=== PATIENT | female | born 1960 | race Caucasian/White ===

== ENCOUNTER → 2017-12-02 | Outpatient (CLI) | payer MEDICAID ==
[2017-12-02 14:48] LABS: ABSOLUTE BASOPHILS # (AUTO) 0.1 10^3/uL (0.0-0.2); ABSOLUTE LYMPHOCYTES (AUTO) 2.6 10^3/uL (0.5-4.7); ABSOLUTE MONOCYTES (AUTO) 0.6 10^3/uL (0.1-1.4); ABSOLUTE NEUT (AUTO) 6.3 10^3/uL (1.7-8.2); HEMATOCRIT 45.5 % (36.0-47.0); HEMOGLOBIN 15.2 g/dL (12.0-15.5); LYMPHOCYTES % (AUTO) 27.3 % (13-45); MEAN CORPUSCULAR HEMOGLOBIN 32.4 pg (27.0-33.4); MEAN CORPUSCULAR HGB CONC 33.5 g/dL (32.0-36.0); MEAN CORPUSCULAR VOLUME 97 fl (80-97); MONOCYTES % (AUTO) 6.1 % (3-13); PLATELET COUNT 252 10^3/uL (150-450); RED CELL DISTRIBUTION WIDTH 17.2 % (11.5-14.0); SEGMENTED NEUTROPHILS % (AUTO) 65.6 % (42-78); TOTAL CELLS COUNTED % (AUTO) 100 %; WHITE BLOOD COUNT 9.7 10^3/uL (4.0-10.5)
== END ==
LOC: OD 13:57
PROVIDERS: ATTEND Emergency Medicine
DX: F31.32 Bipolar disorder, current episode depressed, moderate (principal)
CPT/HCPCS: 36415; 85025

== ENCOUNTER → 2018-01-06 | Outpatient (CLI) | payer MEDICAID ==
[2018-01-06 14:39] LABS: ABSOLUTE LYMPHOCYTES (AUTO) 1.9 10^3/uL (0.5-4.7); ABSOLUTE MONOCYTES (AUTO) 0.6 10^3/uL (0.1-1.4); ABSOLUTE NEUT (AUTO) 6.9 10^3/uL (1.7-8.2); BASOPHILS % (AUTO) 0.5 % (0-2); HEMATOCRIT 40.5 % (36.0-47.0); HEMOGLOBIN 13.7 g/dL (12.0-15.5); LYMPHOCYTES % (AUTO) 20.3 % (13-45); MEAN CORPUSCULAR HGB CONC 33.9 g/dL (32.0-36.0); MEAN CORPUSCULAR VOLUME 97 fl (80-97); MONOCYTES % (AUTO) 6.3 % (3-13); PLATELET COUNT 203 10^3/uL (150-450); RED BLOOD COUNT 4.16 10^6/uL (3.72-5.28); SEGMENTED NEUTROPHILS % (AUTO) 72.9 % (42-78); TOTAL CELLS COUNTED % (AUTO) 100 %; WHITE BLOOD COUNT 9.5 10^3/uL (4.0-10.5)
== END ==
LOC: OD 13:32
PROVIDERS: ATTEND Emergency Medicine
DX: F31.32 Bipolar disorder, current episode depressed, moderate (principal)
CPT/HCPCS: 36415; 85025

== ENCOUNTER → 2018-02-03 | Outpatient (CLI) | payer MEDICAID ==
--- NOTE | 2018-02-17 11:06 | WOMENS IMAGING REPORT ---
EXAM DESCRIPTION: BILAT SCREENING MAMMO W/CAD COMPLETED DATE/TIME: 02/03/2018 1:05 pm REASON FOR STUDY: BILATERAL SCREENING MAMMO/Z12.31 Z12.31 ENCNTR SCREEN MAMMOGRAM FOR MALIGNANT ELAYNE PLASM OF MANASA COMPARISON: None. TECHNIQUE: Standard craniocaudal and mediolateral oblique views of each breast recorded using twenty5mediaa l acquisition. LIMITATIONS: None. FINDINGS: RIGHT BREAST MASSES: No suspicious masses. CALCIFICATIONS: No new or suspicious calcifications. ARCHITECTURAL DISTORTION: None. DEVELOPING DENSITY: None. ASYMMETRY: None noted. OTHER: No other significant findings. LEFT BREAST MASSES: No suspicious masses. CALCIFICATIONS: Focal cluster of calcifications in the deep superior breast, seen on the MLO view onl y, located 10.5 cm from the nipple. ARCHITECTURAL DISTORTION: None. DEVELOPING DENSITY: None. ASYMMETRY: None noted. OTHER: No other significant findings. Read with the assistance of CAD. .[facility] - R2 Cenova Version 1.3 .[facility] Imaging - R2 Cenova Version 1.3 .[facility] Imaging - R2 Cenova Version 2.4 .[facility] - R2 Cenova Version 2.4 .[facility] - R2 Master Certified Rv Technician Version 9.2 IMPRESSION: Focal cluster of calcifications in the deep left breast, seen on the MLO view only. Unr emarkable mammogram of the right breast. BREAST DENSITY: b. There are scattered areas of fibroglandular density. BIRAD: 0 Incomplete: Needs Additional Imaging Evaluation and/or prior Mammograms for Comparison. RECOMMENDATION: RECOMMENDED FOLLOW-UP: Recommend additional evaluation with magnification views of t he left breast. Recommend routine screening mammography of the right breast. The patient will be contacted for additional imaging. COMMENT: The patient has been notified of the results by letter per SA requirements. Additional no tification policies are in place for contacting patient with suspicious or incomplete findings. Quality ID #[id number]: The [employer] recommends an annual screening mammogram for women aged 40 years or over. This facility utilizes a reminder system to ensure that all patients receive reminder letters, and/or direct phone calls for appointments. This includes reminders for routine scr eening mammograms, diagnostic mammograms, or other Breast Imaging Interventions when appropriate. Th is patient will be placed in the appropriate reminder system. The [employer] (ACR) has developed recommendations for screening MRI of the breast s in certain patient populations, to be used in conjunction with mammography. Breast MRI surveillanc e may be appropriate for women with more than 20% lifetime risk of developing breast cancer as deter mined by genetic testing, significant family history of the disease, or history of mantle radiation f or Hodgkins Disease. ACR Practice Guidelines 2008. TECHNICAL DOCUMENTATION: FINDING NUMBER: (1) ASSESSMENT: (1) JOB ID: [id number] [employer]- All Rights Reserved Reading location - IP/workstation name: [email or web address]
== END ==
LOC: WI 12:45
PROVIDERS: ATTEND Physician Assistant Medical
DX: Z12.31 Encounter for screening mammogram for malignant neoplasm of breast (principal)
CPT/HCPCS: 77067

== ENCOUNTER → 2018-02-10 | Outpatient (CLI) | payer MEDICAID ==
[2018-02-10 14:36] LABS: HEMATOCRIT 44.7 % (36.0-47.0); HEMOGLOBIN 14.8 g/dL (12.0-15.5); MEAN CORPUSCULAR HEMOGLOBIN 31.8 pg (27.0-33.4); MEAN CORPUSCULAR HGB CONC 33.1 g/dL (32.0-36.0); MEAN CORPUSCULAR VOLUME 96 fl (80-97); PLATELET COUNT 207 10^3/uL (150-450); RED BLOOD COUNT 4.64 10^6/uL (3.72-5.28); RED CELL DISTRIBUTION WIDTH 16.9 % (11.5-14.0); WHITE BLOOD COUNT 14.8 10^3/uL (4.0-10.5)
[2018-02-10 15:18] LABS: ABSOLUTE LYMPHOCYTES# (MANUAL) 3.4 10^3/uL (0.5-4.7); ABSOLUTE MONOCYTES # (MANUAL) 0.9 10^3/uL (0.1-1.4); ABSOLUTE NEUTROPHILS# (MANUAL) 10.2 10^3/uL (1.7-8.2); BAND NEUTROPHILS % (MANUAL) 6 % (3-5); BASOPHILS % (MANUAL) 2 % (0-2); EOSINOPHILS % (MANUAL) 0 % (0-6); LYMPHOCYTES % (MANUAL) 23 % (13-45); METAMYELOCYTES % (MANUAL) 2 % (0); MONOCYTES % (MANUAL) 6 % (3-13); SEGMENTED NEUTROPHILS % (MAN) 61 % (42-78); TOTAL CELLS COUNTED 100
[2018-02-10 15:19] LABS: ANISOCYTOSIS 1+; PLATELET CLUMPS PRESENT; POLYCHROMASIA SLIGHT; TOXIC GRANULATION 1+; TOXIC VACUOLATION PRESENT
[2018-02-10 15:24] LABS: ALANINE AMINOTRANSFERASE 32 U/L (9-52); ALBUMIN 4.2 g/dL (3.5-5.0); ALKALINE PHOSPHATASE 133 U/L (38-126); ANION GAP 15 (5-19); ASPARTATE AMINO TRANSFERASE 29 U/L (14-36); BILIRUBIN,DIRECT 0.5 mg/dL (0.0-0.4); BILIRUBIN,TOTAL 0.7 mg/dL (0.2-1.3); BLOOD UREA NITROGEN 13 mg/dL (7-20); C-REACTIVE PROTEIN 20.5 mg/L (<10.0); CALCIUM 9.3 mg/dL (8.4-10.2); CARBON DIOXIDE 23 mmol/L (22-30); CHLORIDE 105 mmol/L (98-107); CHOLESTEROL 201.53 mg/dL (0-200); GAMMA-GLUTAMYL TRANSFERASE 39 U/L (8-78); GLUCOSE 89 mg/dL (75-110); POTASSIUM 4.1 mmol/L (3.6-5.0); SODIUM 143.2 mmol/L (137-145); TRIGLYCERIDES 182 mg/dL (<150)
[2018-02-10 15:33] LABS: DIRECT LDL 105 mg/dL (<100)
[2018-02-10 15:43] LABS: IRON(TIBC) 99.7 ug/dL (37-170)
[2018-02-10 16:54] LABS: VLDL CHOLESTEROL 36.4 mg/dL (10-31)
[2018-02-10 18:15] LABS: FREE T3 4.45 pg/mL (2.77-5.27); FREE T4 (FREE THYROXINE) 0.97 ng/dL (0.78-2.19)
[2018-02-10 18:28] LABS: THYROID STIMULATING HORMONE 1.03 uIU/mL (0.47-4.68)
[2018-02-11 08:43] LABS: HEPATITIS C VIRUS AB <0.1 s/co ratio (0.0-0.9)
[2018-02-11 09:07] LABS: HEPATITS B SURFACE ANTIGEN Negative (Negative)
== END ==
LOC: OD 13:29
PROVIDERS: ATTEND Emergency Medicine
DX: F31.32 Bipolar disorder, current episode depressed, moderate (principal)
CPT/HCPCS: 36415; 80053; 80061; 82607; 82746; 82977; 83036; 83090; 83540; 83550; 84439; 84443; 84481; 85025; 86140; 86592; 86701; 86803; 86804; 87340

== ENCOUNTER → 2018-03-10 | Outpatient (CLI) | payer MEDICAID ==
[2018-03-10 14:32] LABS: HEMOGLOBIN 14.2 g/dL (12.0-15.5); MEAN CORPUSCULAR HEMOGLOBIN 31.9 pg (27.0-33.4); MEAN CORPUSCULAR HGB CONC 32.9 g/dL (32.0-36.0); MEAN CORPUSCULAR VOLUME 97 fl (80-97); PLATELET COUNT 211 10^3/uL (150-450); RED BLOOD COUNT 4.43 10^6/uL (3.72-5.28); RED CELL DISTRIBUTION WIDTH 17.8 % (11.5-14.0); WHITE BLOOD COUNT 9.6 10^3/uL (4.0-10.5)
[2018-03-10 14:56] LABS: ABSOLUTE LYMPHOCYTES# (MANUAL) 2.1 10^3/uL (0.5-4.7); ABSOLUTE MONOCYTES # (MANUAL) 0.3 10^3/uL (0.1-1.4); ABSOLUTE NEUTROPHILS# (MANUAL) 7.1 10^3/uL (1.7-8.2); ANISOCYTOSIS 2+; BAND NEUTROPHILS % (MANUAL) 1 % (3-5); BASOPHILS % (MANUAL) 0 % (0-2); EOSINOPHILS % (MANUAL) 1 % (0-6); LYMPHOCYTES % (MANUAL) 22 % (13-45); METAMYELOCYTES % (MANUAL) 2 % (0); MONOCYTES % (MANUAL) 3 % (3-13); PLATELET COMMENT ADEQUATE; POLYCHROMASIA 1+; SEGMENTED NEUTROPHILS % (MAN) 71 % (42-78); TOTAL CELLS COUNTED 100; TOXIC GRANULATION SLIGHT; TOXIC VACUOLATION PRESENT
== END ==
LOC: OD 13:28
PROVIDERS: ATTEND Emergency Medicine
DX: F31.32 Bipolar disorder, current episode depressed, moderate (principal)
CPT/HCPCS: 36415; 85025

== ENCOUNTER → 2018-03-11 | Outpatient (CLI) | payer MEDICAID ==
--- NOTE | 2018-03-11 13:26 | WOMENS IMAGING REPORT ---
EXAM DESCRIPTION: LEFT DIAGNOSTIC MAMMO W/CAD COMPLETED DATE/TIME: 03/11/2018 1:00 pm REASON FOR STUDY: LEFT BREAST CALCIFICATIONS; R92.0 R92.0 MAMMOGRAPHIC MICROCALCIFICATION FOUND ON DX IMAGING OF COMPARISON: 02/03/2018 TECHNIQUE: Compression magnification craniocaudal and 90 mediolateral images of the breast recorde d with digital acquisition. Left breast exaggerated craniocaudad, 90 mediolateral view and MLO view today. LIMITATIONS: None. FINDINGS: BREAST: Left MASSES: No suspicious masses. CALCIFICATIONS: Calcifications seen on left MLO view only 02/03/2018 are well demonstrated on today's exam. The magnification views demonstrate that this is a peripheral rim a or eggshell calcification, benign in appearance. In the field of view of biopsy clip is present without adjacent worrisome fea tures. ARCHITECTURAL DISTORTION: None. DEVELOPING DENSITY: None. ASYMMETRY: None noted. OTHER: No other significant findings. Read with the assistance of CAD. .[facility] - R2 Cenova Version 1.3 .[facility] Imaging - R2 Cenova Version 1.3 .[facility] Imaging - R2 Cenova Version 2.4 .[facility] - R2 Cenova Version 2.4 .[facility] - R2 Blasting Helper Version 9.2 IMPRESSION: No mammographic evidence for malignancy left breast BREAST DENSITY: b. There are scattered areas of fibroglandular density. BIRAD: 2 Benign findings. RECOMMENDATION: RECOMMENDED FOLLOW UP: Please continue yearly bilateral screening mammography/ tomos ynthesis in January 2019 SPECIFIC INTERVENTION/IMAGING/CONSULTATION RECOMMENDED:No additional intervention/ imaging/consultati on needed at this time. COMMUNICATION:Patient notified at the time of encounter. Patient also notified by letter COMMENT: The patient has been notified of the results by letter per SA requirements. Additional no tification policies are in place for contacting patient with suspicious or incomplete findings. Quality ID #[id number]: The [employer] recommends an annual screening mammogram for women aged 40 years or over. This facility utilizes a reminder system to ensure that all patients receive reminder letters, and/or direct phone calls for appointments. This includes reminders for routine scr eening mammograms, diagnostic mammograms, or other Breast Imaging Interventions when appropriate. Th is patient will be placed in the appropriate reminder system. The [employer] (ACR) has developed recommendations for screening MRI of the breast s in certain patient populations, to be used in conjunction with mammography. Breast MRI surveillanc e may be appropriate for women with more than 20% lifetime risk of developing breast cancer as deter mined by genetic testing, significant family history of the disease, or history of mantle radiation f or Hodgkins Disease. ACR Practice Guidelines 2008. TECHNICAL DOCUMENTATION: FINDING NUMBER: (1) ASSESSMENT: (1) JOB ID: [id number] [employer]- All Rights Reserved Reading location - IP/workstation name: [facility]
== END ==
LOC: WI 12:52
PROVIDERS: ATTEND Physician Assistant Medical
DX: R92.0 Mammographic microcalcification found on diagnostic imaging of breast (principal)

== ENCOUNTER → 2018-04-21 | Outpatient (CLI) | payer MEDICAID ==
[2018-04-21 13:36] LABS: ABSOLUTE BASOPHILS # (AUTO) 0.1 10^3/uL (0.0-0.2); ABSOLUTE LYMPHOCYTES (AUTO) 2.2 10^3/uL (0.5-4.7); ABSOLUTE MONOCYTES (AUTO) 0.6 10^3/uL (0.1-1.4); ABSOLUTE NEUT (AUTO) 8.7 10^3/uL (1.7-8.2); BASOPHILS % (AUTO) 0.6 % (0-2); HEMATOCRIT 43.5 % (36.0-47.0); HEMOGLOBIN 14.7 g/dL (12.0-15.5); LYMPHOCYTES % (AUTO) 18.9 % (13-45); MEAN CORPUSCULAR HEMOGLOBIN 31.4 pg (27.0-33.4); MEAN CORPUSCULAR HGB CONC 33.8 g/dL (32.0-36.0); MEAN CORPUSCULAR VOLUME 93 fl (80-97); MONOCYTES % (AUTO) 5.6 % (3-13); PLATELET COUNT 182 10^3/uL (150-450); RED BLOOD COUNT 4.68 10^6/uL (3.72-5.28); RED CELL DISTRIBUTION WIDTH 17.9 % (11.5-14.0); SEGMENTED NEUTROPHILS % (AUTO) 74.9 % (42-78); TOTAL CELLS COUNTED % (AUTO) 100 %; WHITE BLOOD COUNT 11.5 10^3/uL (4.0-10.5)
== END ==
LOC: OD 13:06
PROVIDERS: ATTEND Obstetrics & Gynecology Gynecology
DX: Z51.81 Encounter for therapeutic drug level monitoring (principal); Z79.899 Other long term (current) drug therapy
CPT/HCPCS: 36415; 85025

== ENCOUNTER → 2018-05-30 | Outpatient (CLI) | payer MEDICAID ==
[2018-05-30 13:25] LABS: HEMATOCRIT 44.8 % (36.0-47.0); MEAN CORPUSCULAR HEMOGLOBIN 30.8 pg (27.0-33.4); MEAN CORPUSCULAR HGB CONC 33.5 g/dL (32.0-36.0); MEAN CORPUSCULAR VOLUME 92 fl (80-97); PLATELET COUNT 192 10^3/uL (150-450); RED BLOOD COUNT 4.87 10^6/uL (3.72-5.28); RED CELL DISTRIBUTION WIDTH 18.2 % (11.5-14.0); WHITE BLOOD COUNT 12.8 10^3/uL (4.0-10.5)
[2018-05-30 14:27] LABS: ABSOLUTE LYMPHOCYTES# (MANUAL) 3.3 10^3/uL (0.5-4.7); ABSOLUTE MONOCYTES # (MANUAL) 0.5 10^3/uL (0.1-1.4); BAND NEUTROPHILS % (MANUAL) 2 % (3-5); BASOPHILS % (MANUAL) 0 % (0-2); EOSINOPHILS % (MANUAL) 0 % (0-6); LYMPHOCYTES % (MANUAL) 26 % (13-45); MONOCYTES % (MANUAL) 4 % (3-13); SEGMENTED NEUTROPHILS % (MAN) 68 % (42-78); TOTAL CELLS COUNTED 100
[2018-05-30 14:31] LABS: ANISOCYTOSIS 1+; OVALOCYTES SLIGHT; PLATELET COMMENT ADEQUATE; TOXIC GRANULATION SLIGHT
== END ==
LOC: OD 11:59
PROVIDERS: ATTEND Nurse Practitioner Psychiatric/Mental Health
DX: F31.30 Bipolar disorder, current episode depressed, mild or moderate severity, unspecified (principal); Z79.899 Other long term (current) drug therapy
CPT/HCPCS: 36415; 85025

== ENCOUNTER → 2018-06-17 | Outpatient (CLI) | payer MEDICAID ==
[2018-06-17 14:36] LABS: HEMATOCRIT 45.5 % (36.0-47.0); HEMOGLOBIN 15.3 g/dL (12.0-15.5); MEAN CORPUSCULAR HEMOGLOBIN 30.4 pg (27.0-33.4); MEAN CORPUSCULAR HGB CONC 33.6 g/dL (32.0-36.0); MEAN CORPUSCULAR VOLUME 91 fl (80-97); PLATELET COUNT 217 10^3/uL (150-450); RED BLOOD COUNT 5.03 10^6/uL (3.72-5.28); RED CELL DISTRIBUTION WIDTH 18.2 % (11.5-14.0)
[2018-06-17 15:09] LABS: ABSOLUTE LYMPHOCYTES# (MANUAL) 2.3 10^3/uL (0.5-4.7); ABSOLUTE MONOCYTES # (MANUAL) 0.7 10^3/uL (0.1-1.4); ABSOLUTE NEUTROPHILS# (MANUAL) 9.9 10^3/uL (1.7-8.2); ANISOCYTOSIS 2+; BAND NEUTROPHILS % (MANUAL) 3 % (3-5); BASOPHILS % (MANUAL) 1 % (0-2); EOSINOPHILS % (MANUAL) 0 % (0-6); HYPOCHROMASIA SLIGHT; LYMPHOCYTES % (MANUAL) 18 % (13-45); METAMYELOCYTES % (MANUAL) 2 % (0); MONOCYTES % (MANUAL) 5 % (3-13); PLATELET COMMENT ADEQUATE; POLYCHROMASIA SLIGHT; SEGMENTED NEUTROPHILS % (MAN) 71 % (42-78); TOTAL CELLS COUNTED 100; TOXIC GRANULATION SLIGHT
== END ==
LOC: OD 13:42
PROVIDERS: ATTEND Nurse Practitioner Psychiatric/Mental Health
DX: Z51.81 Encounter for therapeutic drug level monitoring (principal); Z79.899 Other long term (current) drug therapy
CPT/HCPCS: 36415; 85025

== ENCOUNTER → 2018-07-03 | Outpatient (CLI) | payer MEDICAID ==
[2018-07-03 12:41] LABS: HEMATOCRIT 40.2 % (36.0-47.0); HEMOGLOBIN 13.3 g/dL (12.0-15.5); MEAN CORPUSCULAR HEMOGLOBIN 30.1 pg (27.0-33.4); MEAN CORPUSCULAR VOLUME 91 fl (80-97); PLATELET COUNT 190 10^3/uL (150-450); RED BLOOD COUNT 4.41 10^6/uL (3.72-5.28); RED CELL DISTRIBUTION WIDTH 19.8 % (11.5-14.0); WHITE BLOOD COUNT 12.4 10^3/uL (4.0-10.5)
[2018-07-03 13:22] LABS: ABSOLUTE LYMPHOCYTES# (MANUAL) 2.4 10^3/uL (0.5-4.7); ABSOLUTE MONOCYTES # (MANUAL) 0.7 10^3/uL (0.1-1.4); ABSOLUTE NEUTROPHILS# (MANUAL) 9.2 10^3/uL (1.7-8.2); BASOPHILS % (MANUAL) 0 % (0-2); EOSINOPHILS % (MANUAL) 1 % (0-6); LYMPHOCYTES % (MANUAL) 19 % (13-45); MONOCYTES % (MANUAL) 6 % (3-13); SEGMENTED NEUTROPHILS % (MAN) 74 % (42-78); TOTAL CELLS COUNTED 100
[2018-07-03 13:26] LABS: ANISOCYTOSIS 2+; OVALOCYTES SLIGHT; POLYCHROMASIA SLIGHT; TEAR DROP CELLS SLIGHT; TOXIC GRANULATION 1+; TOXIC VACUOLATION PRESENT
[2018-07-03 13:27] LABS: PLATELET COMMENT ADEQUATE; PLATELET LARGE PRESENT
== END ==
LOC: OD 11:41
PROVIDERS: ATTEND Nurse Practitioner
DX: F31.32 Bipolar disorder, current episode depressed, moderate (principal)
CPT/HCPCS: 36415; 85025

== ENCOUNTER → 2018-07-31 | Outpatient (CLI) | payer MEDICAID ==
[2018-07-31 13:13] LABS: HEMATOCRIT 40.7 % (36.0-47.0); HEMOGLOBIN 13.4 g/dL (12.0-15.5); MEAN CORPUSCULAR HEMOGLOBIN 30.1 pg (27.0-33.4); MEAN CORPUSCULAR HGB CONC 32.8 g/dL (32.0-36.0); MEAN CORPUSCULAR VOLUME 92 fl (80-97); PLATELET COUNT 208 10^3/uL (150-450); RED BLOOD COUNT 4.44 10^6/uL (3.72-5.28); RED CELL DISTRIBUTION WIDTH 20.8 % (11.5-14.0); WHITE BLOOD COUNT 23.5 10^3/uL (4.0-10.5)
[2018-07-31 14:25] LABS: ABSOLUTE LYMPHOCYTES# (MANUAL) 2.8 10^3/uL (0.5-4.7); ABSOLUTE MONOCYTES # (MANUAL) 0.9 10^3/uL (0.1-1.4); ABSOLUTE NEUTROPHILS# (MANUAL) 19.7 10^3/uL (1.7-8.2); BAND NEUTROPHILS % (MANUAL) 4 % (3-5); BASOPHILS % (MANUAL) 0 % (0-2); EOSINOPHILS % (MANUAL) 0 % (0-6); LYMPHOCYTES % (MANUAL) 12 % (13-45); MONOCYTES % (MANUAL) 4 % (3-13); SEGMENTED NEUTROPHILS % (MAN) 74 % (42-78); TOTAL CELLS COUNTED 100
[2018-07-31 14:30] LABS: OVALOCYTES SLIGHT; PLATELET COMMENT ADEQUATE; POIKILOCYTOSIS SLIGHT; POLYCHROMASIA SLIGHT; TOXIC GRANULATION 1+
[2018-07-31 14:35] LABS: METAMYELOCYTES % (MANUAL) 4 % (0)
[2018-07-31 14:36] LABS: MYELOCYTES % (MANUAL) 2 % (0)
== END ==
LOC: OD 12:41
PROVIDERS: ATTEND Nurse Practitioner
DX: F31.32 Bipolar disorder, current episode depressed, moderate (principal)
CPT/HCPCS: 36415; 85025

== ENCOUNTER → 2018-08-22 | Outpatient (CLI) | payer MEDICAID ==
[2018-08-22 11:44] LABS: HEMATOCRIT 43.2 % (36.0-47.0); HEMOGLOBIN 14.1 g/dL (12.0-15.5); MEAN CORPUSCULAR HEMOGLOBIN 30.2 pg (27.0-33.4); MEAN CORPUSCULAR HGB CONC 32.7 g/dL (32.0-36.0); MEAN CORPUSCULAR VOLUME 92 fl (80-97); PLATELET COUNT 233 10^3/uL (150-450); RED BLOOD COUNT 4.68 10^6/uL (3.72-5.28); RED CELL DISTRIBUTION WIDTH 20.9 % (11.5-14.0); WHITE BLOOD COUNT 16.9 10^3/uL (4.0-10.5)
[2018-08-22 12:16] LABS: ABSOLUTE MONOCYTES # (MANUAL) 0.3 10^3/uL (0.1-1.4); ABSOLUTE NEUTROPHILS# (MANUAL) 14.5 10^3/uL (1.7-8.2); ANISOCYTOSIS 2+; BAND NEUTROPHILS % (MANUAL) 4 % (3-5); BASOPHILS % (MANUAL) 0 % (0-2); EOSINOPHILS % (MANUAL) 0 % (0-6); LYMPHOCYTES % (MANUAL) 10 % (13-45); METAMYELOCYTES % (MANUAL) 1 % (0); MONOCYTES % (MANUAL) 2 % (3-13); POIKILOCYTOSIS SLIGHT; POLYCHROMASIA SLIGHT; SEGMENTED NEUTROPHILS % (MAN) 81 % (42-78); TOTAL CELLS COUNTED 100
[2018-08-22 12:17] LABS: OVALOCYTES SLIGHT; PLATELET COMMENT ADEQUATE
== END ==
LOC: OD 10:50
PROVIDERS: ATTEND Nurse Practitioner
DX: F31.32 Bipolar disorder, current episode depressed, moderate (principal)
CPT/HCPCS: 36415; 85025

== ENCOUNTER 2018-08-26 15:49 | Inpatient (IN) | payer MEDICAID ==
[2018-08-26] MEDS ORDERED: IPRATROPIUM/ALBUTEROL 0.5-2.5 MG/3 ML AMPUL NEB ONE (16:19)
[2018-08-26] MEDS ORDERED: METHYLPREDNISOLONE INJ 125 MG/2 ML SDV IV ONE (16:19)
[2018-08-26] MEDS ORDERED: MAGNESIUM SULFATE/D5W 1 GM/100 ML RTUPB IV ONE (16:20)
[2018-08-26 16:27] LABS: HEMATOCRIT 41.3 % (36.0-47.0); HEMOGLOBIN 13.8 g/dL (12.0-15.5); MEAN CORPUSCULAR HEMOGLOBIN 30.7 pg (27.0-33.4); MEAN CORPUSCULAR HGB CONC 33.3 g/dL (32.0-36.0); MEAN CORPUSCULAR VOLUME 92 fl (80-97); PLATELET COUNT 149 10^3/uL (150-450); RED BLOOD COUNT 4.49 10^6/uL (3.72-5.28); RED CELL DISTRIBUTION WIDTH 20.3 % (11.5-14.0); WHITE BLOOD COUNT 9.8 10^3/uL (4.0-10.5)
[2018-08-26 16:30] LABS: VENOUS BLOOD BASE EXCESS 0.5 mmol/L; VENOUS BLOOD HCO3 24.9 mmol/L (20-32); VENOUS BLOOD PCO2 39.5 mmHg (35-63); VENOUS BLOOD PH 7.42 (7.30-7.42)
[2018-08-26 16:33] LABS: INTERNATIONAL RATION (INR) 1.28; PROTHROMBIN TIME 16.7 SEC (11.4-15.4)
--- NOTE | 2018-08-26 16:37 | RADIOLOGY REPORT (SQ) ---
EXAM DESCRIPTION: CHEST SINGLE VIEW COMPLETED DATE/TIME: 08/26/2018 4:26 pm REASON FOR STUDY: bed 10 sepsis protocol COMPARISON: None. EXAM PARAMETERS: NUMBER OF VIEWS: One view. TECHNIQUE: Single frontal radiographic view of the chest acquired. RADIATION DOSE: NA LIMITATIONS: None. FINDINGS: LUNGS AND PLEURA: Mild patchy left basilar opacities. Additional linear left mid lung opa cities likely atelectasis or scarring. No dense consolidation. Notes significant effusion. No pneu mothorax. MEDIASTINUM AND HILAR STRUCTURES: No masses. Contour normal. HEART AND VASCULAR STRUCTURES: Normal heart size. Aortic atherosclerosis. BONES: No acute findings. HARDWARE: None in the chest. OTHER: No other significant finding. IMPRESSION: Patchy left basilar opacity suspicious for pneumonia. TECHNICAL DOCUMENTATION: JOB ID: [id number] [employer]- All Rights Reserved Reading location - IP/workstation name: [email or web address]
[2018-08-26 16:47] LABS: ABSOLUTE MONOCYTES # (MANUAL) 0.5 10^3/uL (0.1-1.4); ABSOLUTE NEUTROPHILS# (MANUAL) 7.3 10^3/uL (1.7-8.2); BAND NEUTROPHILS % (MANUAL) 6 % (3-5); BASOPHILS % (MANUAL) 1 % (0-2); EOSINOPHILS % (MANUAL) 0 % (0-6); LYMPHOCYTES % (MANUAL) 18 % (13-45); METAMYELOCYTES % (MANUAL) 2 % (0); MONOCYTES % (MANUAL) 5 % (3-13); SEGMENTED NEUTROPHILS % (MAN) 66 % (42-78); TOTAL CELLS COUNTED 100
[2018-08-26 16:49] LABS: ANISOCYTOSIS 2+; OVALOCYTES SLIGHT; POIKILOCYTOSIS SLIGHT; POLYCHROMASIA 1+; SCHISTOCYTES SLIGHT
[2018-08-26 16:50] LABS: PLATELET COMMENT DECREASED
[2018-08-26 16:51] LABS: ALANINE AMINOTRANSFERASE 38 U/L (9-52); ALKALINE PHOSPHATASE 119 U/L (38-126); ANION GAP 12 (5-19); ASPARTATE AMINO TRANSFERASE 42 U/L (14-36); BILIRUBIN,DIRECT 0.4 mg/dL (0.0-0.4); BILIRUBIN,TOTAL 0.7 mg/dL (0.2-1.3); BLOOD UREA NITROGEN 13 mg/dL (7-20); CALCIUM 8.6 mg/dL (8.4-10.2); CARBON DIOXIDE 25 mmol/L (22-30); CHLORIDE 101 mmol/L (98-107); GLUCOSE 90 mg/dL (75-110); POTASSIUM 3.8 mmol/L (3.6-5.0); TOTAL PROTEIN 6.2 g/dL (6.3-8.2)
[2018-08-26] MEDS: NORMAL SALINE 1000 ML 1,000 ML IV PRN ×2 (16:51→16:52)
[2018-08-26] MEDS ORDERED: ALBUTEROL SULFATE 0.083% NEB 2.5 MG/3 ML AMPUL NEB ONE (17:27)
[2018-08-26] MEDS ORDERED: AZITHROMYCIN INJ 500 MG VIAL IV ONE ×2 (17:27→21:30)
[2018-08-26] MEDS ORDERED: TERBUTALINE SULFATE INJ/PF 1 MG/1 ML SDV SUBCUT ONE (17:32)
--- NOTE | 2018-08-26 18:47 | ER Document Report ---
ED General - General Chief Complaint: Painful Cough Stated Complaint: DIFFICULTY BREATHING Time Seen by Provider: 08/26/18 16:19 TRAVEL OUTSIDE OF THE [place] IN LAST 30 DAYS: No - HPI Patient complains to provider of: Difficulty breathing Notes: Patient coming in for difficulty breathing ongoing for approximately 1 week. Patient states that she is a smoker patient states no productive sputum no night sweats no fevers. Patient denies having any use of Medrol or inhalers at home. Patient was found to be hypoxic by EMS was placed on breathing treatment patient is currently transitioned over to nasal cannula 4 L. Patient states she normally does not wear oxygen at home denies any recent travel denies any PT. Patient denies any chest pain abdominal pain nausea vomiting diarrhea. Patient denies any fever or chills. Patient otherwise is tachypneic looks to be in respiratory distress mild upon my evaluation. Past Medical History - Social History Smoking Status: Unknown if Ever Smoked Family History: Reviewed & Not Pertinent Review of Systems - Review of Systems Constitutional: No symptoms reported EENT: No symptoms reported Cardiovascular: No symptoms reported Respiratory: Cough, Short of breath, Wheezing Gastrointestinal: No symptoms reported Genitourinary: No symptoms reported Female Genitourinary: No symptoms reported Musculoskeletal: No symptoms reported Skin: No symptoms reported Hematologic/Lymphatic: No symptoms reported Neurological/Psychological: No symptoms reported -: Yes All other systems reviewed and negative Physical Exam - Vital signs Interpretation: Hypotensive, Tachypneic - General General appearance: Appears well, Alert - HEENT Head: Normocephalic, Atraumatic Eyes: Normal Pupils: PERRL - Respiratory Respiratory status: No respiratory distress Chest status: Nontender Breath sounds: Rhonchi, Stridor Chest palpation: Normal - Cardiovascular Rhythm: Regular Heart sounds: Normal auscultation Murmur: No - Abdominal Inspection: Normal Distension: No distension Bowel sounds: Normal Tenderness: Nontender Organomegaly: No organomegaly - Back Back: Normal, Nontender - Extremities General upper extremity: Normal inspection, Nontender, Normal color, Normal ROM, Normal temperature General lower extremity: Normal inspection, Nontender, Normal color, Normal ROM, Normal temperature, Normal weight bearing. No: Young's sign - Neurological Neuro grossly intact: Yes Cognition: Normal Orientation: AAOx4 [place] Coma Scale Eye Opening: Spontaneous [place] Coma Scale Verbal: Oriented Maritza Coma Scale Motor: Obeys Commands Del[place] Coma Scale Total: 15 Speech: Normal Motor strength normal: LUE, RUE, LLE, RLE Sensory: Normal - Psychological Associated symptoms: Normal affect, Normal mood - Skin Skin Temperature: Warm Skin Moisture: Dry Skin Color: Normal Course - Re-evaluation Re-evalutation: 08/26/18 18:46 Minimal improvement in lung sounds of the patient upon reevaluation of the breathing treatment states she is feeling much better. Patient was given 2 L bolus of fluid with improvement of her blood pressure from systolics of 80s to systolics of 100. Chest x-ray shows signs of pneumonia. Patient states no recent antibiotic use denies any recent hospitalizations will start with community-acquired antibiotics Rocephin and Zithromax. Laboratory studies showed bandemia no rest or acidosis no hypercapnia on the venous blood gas. Patient will be admitted to the hospital for further evaluation. - Laboratory Result Diagrams: 08/26/18 16:10 08/26/18 16:10 Laboratory results interpreted by me: 08/26/18 08/26/18 08/26/18 16:10 16:10 16:10 RDW 20.3 H Plt Count 149 L Band Neutrophils % 6 H Metamyelocytes % 2 H PT 16.7 H Creatinine 1.34 H Est GFR ( Amer) 50 L Est GFR (Non-Af Amer) 41 L AST 42 H Total Protein 6.2 L Critical Care Note - Critical Care Note Total time excluding time spent on procedures (mins): 40 Comments: Patient required multiple evaluations due to underlying sepsis respiratory distress. Discharge - Discharge Clinical Impression: Respiratory distress with hypoxia Pneumonia Qualifiers: Pneumonia type: due to unspecified organism Laterality: left Lung location: unspecified part of lung Qualified Code(s): J18.9 - Pneumonia, unspecified organism Sepsis Qualifiers: Sepsis type: sepsis due to unspecified organism Qualified Code(s): A41.9 - Sepsis, unspecified organism Hypotension Qualifiers: Hypotension type: hypotension due to hypovolemia Qualified Code(s): I95.89 - Other hypotension; E86.1 - Hypovolemia Condition: Fair Admitting Provider: Hospitalist [facility] Unit Admitted: [facility]
[2018-08-26] MEDS ORDERED: NORMAL SALINE 1000 ML 1,000 ML IV PRN (19:25)
[2018-08-26] MEDS ORDERED: GUAIFENESIN SYRP 200 MG/10 ML UDC PO PRN (19:25)
[2018-08-26] MEDS ORDERED: IPRATROPIUM/ALBUTEROL 0.5-2.5 MG/3 ML AMPUL NEB PRN (19:25)
[2018-08-26] MEDS ORDERED: LEVALBUTEROL HCL NEB 1.25 MG/3 ML AMPUL NEB PRN (19:25)
[2018-08-26] MEDS ORDERED: ACETAMINOPHEN 325 MG TABLET PO PRN (19:25)
[2018-08-26] MEDS ORDERED: PHARMACY COMMUNICATION ORDER MC NR (19:30)
[2018-08-26] MEDS ORDERED: OLANZAPINE 5 MG TAB.RAPDIS PO PRN (19:35)
[2018-08-26] MEDS ORDERED: MORPHINE SULFATE 10 MG/ML INJ IV PRN (19:40)
--- NOTE | 2018-08-26 20:10 | PDOC H&P ---
History of Present Illness Admission Date/PCP: 08/26/18 18:52 Patient complains of: Increased shortness of breath with painful cough History of Present Illness: THOR VANEGAS is a 57 year old female with a positive smoking history. She smokes approximately 1-1-1/2 packs daily. The patient is somewhat sleepy at the time of this encounter so much of the history is gleaned from discussion with and review of notes from the emergency department physician. Patient reports that over the last week she has been having significantly increased shortness of breath. She does not report a productive cough. EMS was called and she initially required 4 L of nasal cannula with multiple nebulizer treatments. Review of the home setting reveals no oxygen and no inhaler medications noted. Unfortunately patient cannot recall her medications. She states that there was a list on the table but we cannot locate the list at this time. The patient did arrive in the emergency department in moderate respiratory distress. She was also hypotensive. She was, however, afebrile. After several liters of IV fluid and improvement in her respiratory status she was referred to the hospitalist for admission. Past Medical History Past Medical History: Unable to obtain full history as patient was somnolent at the time of this encounter. I did review with the emergency department physician and he reports that the patient is a very poor historian. There is also evidently a history of mental illness. We will need to investigate further as there are no old records from [facility]. Cardiac Medical History: Reports: Other - Will discuss with patient when she is more awake Pulmonary Medical History: Reports: Chronic Obstructive Pulmonary Disease (COPD) - Ongoing smoker. Chest x-ray does resemble the picture of copd EENT Medical History: Reports: Other - No evidence of past medical conditions Neurological Medical History: Reports: Other - Unable to obtain information. Will discuss with patient further. Endocrine Medical History: Reports: Other - Unable to obtain information. Will discuss with patient further. Renal/ Medical History: Reports: Other - Unable to obtain information. Will discuss with patient further Malignancy Medical History: Reports: Other - As above GI Medical History: Reports: Other - As above Musculoskeltal Medical History: Reports: Other - As above Skin Medical History: Reports: Other - As above Psychiatric Medical History: Reports: Bipolar Disorder - Possible history of bipolar disorder, Tobacco Dependency Traumatic Medical History: Reports: Other - None known at this time Hematology: Reports: Other - As above Infectious Medical History: Reports: None, Other Infectious History Note: Will need to investigate further with the patient when she is more awake and alert. Past Surgical History Past Surgical History: Unable to obtain Social History Information Source: [facility] Records - Extremely limited information available Lives with: Alone - To the best of my knowledge Smoking Status: Current Every Day Smoker Frequency of Alcohol Use: None - Unknown at this time Hx Recreational Drug Use: No - Unknown at this time Hx Prescription Drug Abuse: No - Unknown at this time - Advance Directive Resuscitation Status: Full Code Surrogate healthcare decision maker:: Unable to discuss with patient due to her current state. I will classify has a full code initially and review further with the patient when she is more awake and alert. Family History Family History: Reviewed & Not Pertinent Family History: Unable to obtain this evening. We will revisit with the patient tomorrow. Parental Family History Reviewed: No Children Family History Reviewed: No Sibling(s) Family History Reviewed.: No Review of Systems ROS unobtainable: Due to mental status Review of Systems: Patient has been receiving IV fluids. She did wake up because she had to urinate. There was very limited interaction during that time. Constitutional: PRESENT: as per HPI. ABSENT: chills, fever(s), night sweats Respiratory: PRESENT: cough, dyspnea. ABSENT: sputum Physical Exam Vital Signs: Intake & Output 08/25/18 08/26/18 08/27/18 06:59 06:59 06:59 Intake Total 1017 Balance 1017 General appearance: PRESENT: no acute distress, obese Head exam: PRESENT: atraumatic, normocephalic Eye exam: PRESENT: other Ear exam: PRESENT: normal external ear exam Mouth exam: PRESENT: other - Unable to assess Throat exam: PRESENT: other - Unable to assess Neck exam: ABSENT: carotid bruit, lymphadenopathy Respiratory exam: PRESENT: rhonchi - Right base, symmetrical. ABSENT: accessory muscle use, stridor, wheezes Cardiovascular exam: PRESENT: RRR, +S1, +S2 GI/Abdominal exam: PRESENT: other - Unable to assess Rectal exam: PRESENT: deferred Gentrourinary exam: ABSENT: indwelling catheter Extremities exam: ABSENT: pedal edema Musculoskeletal exam: PRESENT: normal inspection Neurological exam: PRESENT: awake, other - Somewhat somnolent. Review of notes revealed that upon initial admission she was awake alert and oriented.. ABSENT: alert Psychiatric exam: ABSENT: agitated, anxious Focused psych exam: PRESENT: restlessness - Clearly restless when she woke up and had to urinate Skin exam: PRESENT: dry, normal color, warm Results Laboratory Results: 08/26/18 16:10 08/26/18 16:10 08/26/18 08/26/18 08/26/18 16:10 16:10 16:10 WBC 9.8 RBC 4.49 Hgb 13.8 Hct 41.3 MCV 92 MCH 30.7 MCHC 33.3 RDW 20.3 H Plt Count 149 L Seg Neutrophils % Not Reportable Lymphocytes % Not Reportable Monocytes % Not Reportable Eosinophils % Not Reportable Basophils % Not Reportable Absolute Neutrophils Not Reportable Absolute Lymphocytes Not Reportable Absolute Monocytes Not Reportable Absolute Eosinophils Not Reportable Absolute Basophils Not Reportable VBG pH VBG pCO2 VBG HCO3 VBG Base Excess Sodium 138.0 Potassium 3.8 Chloride 101 Carbon Dioxide 25 Anion Gap 12 BUN 13 Creatinine 1.34 H Est GFR ( Amer) 50 L Est GFR (Non-Af Amer) 41 L Glucose 90 Lactic Acid 0.8 Calcium 8.6 Magnesium 2.1 Total Bilirubin 0.7 AST 42 H ALT 38 Alkaline Phosphatase 119 Total Protein 6.2 L Albumin 4.0 08/26/18 16:10 WBC RBC Hgb Hct MCV MCH MCHC RDW Plt Count Seg Neutrophils % Lymphocytes % Monocytes % Eosinophils % Basophils % Absolute Neutrophils Absolute Lymphocytes Absolute Monocytes Absolute Eosinophils Absolute Basophils VBG pH 7.42 VBG pCO2 39.5 VBG HCO3 24.9 VBG Base Excess 0.5 Sodium Potassium Chloride Carbon Dioxide Anion Gap BUN Creatinine Est GFR ( Amer) Est GFR (Non-Af Amer) Glucose Lactic Acid Calcium Magnesium Total Bilirubin AST ALT Alkaline Phosphatase Total Protein Albumin 08/26/18 16:10 Troponin I < 0.012 Impressions: Chest X-Ray 08/26/18 15:53 IMPRESSION: Patchy left basilar opacity suspicious for pneumonia. Assessment & Plan - Diagnosis (1) Acute respiratory failure with hypoxia Is this a current diagnosis for this admission?: Yes Plan: The patient reports that she does not use oxygen at home. She will be placed on nebulized steroids as well as duo nebs with as needed Xopenex available. We will also give systemic steroids. The patient most likely has chronic obstructive pulmonary disease. We will obtain PFTs when the patient improves. Because she is not on oxygen at home we will try to wean her from the oxygen unless results of pulse oximetry and other studies support ongoing oxygen therapy. (2) Pneumonia Qualifiers: Pneumonia type: due to unspecified organism Laterality: left Lung location: lower lobe of lung Qualified Code(s): J18.1 - Lobar pneumonia, unspecified organism Is this a current diagnosis for this admission?: Yes Plan: Unfortunately patient does not have a productive cough. She has started on antibiotics so a sputum obtained in the future will not be as valuable. We will treat for community acquired pneumonia at this time. She did not have an elevated white blood cell count but she did have bandemia. Azithromycin and Rocephin have been started. (3) Hypotension Qualifiers: Hypotension type: hypotension due to hypovolemia Qualified Code(s): I95.89 - Other hypotension; E86.1 - Hypovolemia Is this a current diagnosis for this admission?: Yes Plan: After several liters of fluid the patient's blood pressure slowly improved. I will administer more IV fluid. The patient will also be on intravenous methylprednisolone and this should improve the pressure as well. At this point I do not believe that the patient will require pressor therapy and therefore I will admit the patient to IMCU. We will need to monitor her urine output to avoid marked volume overload. (4) Sepsis Qualifiers: Sepsis type: sepsis due to unspecified organism Qualified Code(s): A41.9 - Sepsis, unspecified organism Is this a current diagnosis for this admission?: Yes Plan: By criteria, with her acute hypoxemia, platelet count below 150, slightly elevated serum creatinine and hypotension the patient does qualify for diagnosis of sepsis likely from the pneumonia. Her serum lactic acid was normal. Blood cultures have been obtained. Blood pressure has improved. I will recheck laboratory studies tomorrow. (5) Nicotine dependence Qualifiers: Nicotine product type: cigarettes Substance use status: uncomplicated Qualified Code(s): F17.210 - Nicotine dependence, cigarettes, uncomplicated Is this a current diagnosis for this admission?: Yes Plan: It is believed that the patient smokes 1-1-1/2 packs of cigarettes daily. I will start with the transdermal nicotine patch at 21 mg and taper if possible. - Time Time Spent: 50 to 70 Minutes Smoking Cessation Education: 3 to 10 minutes - Not sure if the patient will remember the discussion and so I will revisit tobacco cessation tomorrow as well. Medications reviewed and adjusted accordingly: Yes - Current medication list is unavailable. [facility] pharmacy was contacted - Inpatient Certification Based on my medical assessment, after consideration of the patient's comorbidities, presenting symptoms, or acuity I expect that the services needed warrant INPATIENT care.: Yes I certify that my determination is in accordance with my understanding of Medicare's requirements for reasonable and necessary INPATIENT services [42 CFR 412.3e].: Yes Medical Necessity: Need Close Monitoring Due to Risk of Patient Decompensation, Need For IV Fluids, Need for Nebulizer Therapy and Monitoring of Response, Need for IV Antibiotics, Risk of Complication if Not Cared For in Hospital Post Hospital Care: D/C Robot Technician Documentation
[2018-08-26] MEDS: GUAIFENESIN 600 MG TABLET.SA PO SCH (21:34)
[2018-08-26] MEDS: BUDESONIDE NEB 0.5 MG/2 ML AMPUL NEB SCH (21:35)
--- NOTE | 2018-08-26 21:46 | EKG REPORT ---
SEVERITY:- BORDERLINE ECG - SINUS RHYTHM BORDERLINE LEFT AXIS DEVIATION BORDERLINE T WAVE ABNORMALITIES : Confirmed by: Elroy Rosas 26-Aug-2018 21:45:09
[2018-08-26] MEDS ORDERED: FAMOTIDINE 20 MG TABLET PO SCH ×2 (22:00)
[2018-08-26] MEDS ORDERED: METHYLPREDNISOLONE INJ 125 MG/2 ML SDV IV SCH (22:00)
[2018-08-26] MEDS ORDERED: CEFTRIAXONE 1 GM/D5W RTU 1 GM/50 ML RTUPB IV ONE (22:00)
[2018-08-27 01:32] LABS: APPEARANCE,URINE CLEAR; BILIRUBIN,URINE NEGATIVE (NEGATIVE); COLOR,URINE YELLOW; GLUCOSE, URINE NEGATIVE (NEGATIVE); KETONES,URINE NEGATIVE (NEGATIVE); LEUKOCYTE ESTERASE,URINE NEGATIVE (NEGATIVE); NITRITE,URINE NEGATIVE (NEGATIVE); PROTEIN,URINE NEGATIVE (NEGATIVE)
[2018-08-27] MEDS: METHYLPREDNISOLONE INJ 40 MG/1 ML SDV IV SCH ×2 (02:24→10:07)
[2018-08-27 06:44] LABS: HEMATOCRIT 41.2 % (36.0-47.0); HEMOGLOBIN 13.5 g/dL (12.0-15.5); MEAN CORPUSCULAR HEMOGLOBIN 30.3 pg (27.0-33.4); MEAN CORPUSCULAR HGB CONC 32.7 g/dL (32.0-36.0); MEAN CORPUSCULAR VOLUME 93 fl (80-97); PLATELET COUNT 134 10^3/uL (150-450); RED BLOOD COUNT 4.45 10^6/uL (3.72-5.28); RED CELL DISTRIBUTION WIDTH 20.2 % (11.5-14.0); WHITE BLOOD COUNT 11.1 10^3/uL (4.0-10.5)
[2018-08-27 06:51] LABS: ANION GAP 6 (5-19); BLOOD UREA NITROGEN 13 mg/dL (7-20); CALCIUM 8.5 mg/dL (8.4-10.2); CARBON DIOXIDE 27 mmol/L (22-30); CHLORIDE 109 mmol/L (98-107); GLUCOSE 94 mg/dL (75-110); POTASSIUM 4.1 mmol/L (3.6-5.0)
[2018-08-27 07:36] LABS: ABSOLUTE LYMPHOCYTES# (MANUAL) 2.3 10^3/uL (0.5-4.7); ABSOLUTE MONOCYTES # (MANUAL) 0.3 10^3/uL (0.1-1.4); ABSOLUTE NEUTROPHILS# (MANUAL) 8.4 10^3/uL (1.7-8.2); BAND NEUTROPHILS % (MANUAL) 2 % (3-5); BASOPHILS % (MANUAL) 0 % (0-2); EOSINOPHILS % (MANUAL) 0 % (0-6); LYMPHOCYTES % (MANUAL) 21 % (13-45); MONOCYTES % (MANUAL) 3 % (3-13); SEGMENTED NEUTROPHILS % (MAN) 74 % (42-78); TOTAL CELLS COUNTED 100
[2018-08-27 07:37] LABS: TOXIC GRANULATION SLIGHT
[2018-08-27 07:38] LABS: ANISOCYTOSIS 2+; OVALOCYTES 1+; PLATELET COMMENT DECREASED; POIKILOCYTOSIS 1+; POLYCHROMASIA SLIGHT
[2018-08-27] MEDS: BUDESONIDE NEB 0.5 MG/2 ML AMPUL NEB SCH (08:41)
[2018-08-27] MEDS ORDERED: NORMAL SALINE 1000 ML 1,000 ML IV ONE (08:49)
[2018-08-27] MEDS ORDERED: CEFTRIAXONE 1 GM/D5W RTU 1 GM/50 ML RTUPB IV ONE (09:00)
--- NOTE | 2018-08-27 09:04 | RADIOLOGY REPORT (SQ) ---
EXAM DESCRIPTION: CHEST SINGLE VIEW COMPLETED DATE/TIME: 08/27/2018 7:59 am REASON FOR STUDY: Right lower lobe pneumonia COMPARISON: AP chest 08/26/2018 EXAM PARAMETERS: NUMBER OF VIEWS: One view. TECHNIQUE: Single frontal radiographic view of the chest acquired. RADIATION DOSE: NA LIMITATIONS: None. FINDINGS: LUNGS AND PLEURA: Right basilar bandlike airspace disease atelectasis versus pneumonia. Stable bandlike atelectasis in the lingula. No pleural effusions or pneumothorax. MEDIASTINUM AND HILAR STRUCTURES: No masses. Contour normal. HEART AND VASCULAR STRUCTURES: Heart normal in size. Normal vasculature. BONES: No acute findings. HARDWARE: None in the chest. OTHER: No other significant finding. IMPRESSION: Right basilar airspace disease atelectasis versus pneumonia TECHNICAL DOCUMENTATION: JOB ID: [id number] [employer]- All Rights Reserved Reading location - IP/workstation name: [email or web address]
[2018-08-27] MEDS ORDERED: AZITHROMYCIN 500 MG in DEXTROSE 5%-WATER 250 ML IV ONE (09:30)
[2018-08-27] MEDS ORDERED: NICOTINE 21 MG/24 HR PATCH.TD24 TD SCH (10:00)
[2018-08-27] MEDS ORDERED: ENOXAPARIN SODIUM INJ 40 MG/0.4 ML DISP.SYRIN SUBCUT SCH (10:00)
[2018-08-27] MEDS: GUAIFENESIN 600 MG TABLET.SA PO SCH (10:07)
[2018-08-27 10:12] VITALS: BP 118/78
[2018-08-27] MEDS ORDERED: AZITHROMYCIN 500 MG in DEXTROSE 5%-WATER 250 ML IV SCH (18:00)
[2018-08-27] MEDS ORDERED: CEFTRIAXONE 1 GM/D5W RTU 1 GM/50 ML RTUPB IV SCH (22:00)
--- NOTE | 2018-08-28 06:14 | PDOC DISCHARGE SUMMARY ---
General - Admit/Disc Date/PCP Admission Date/Primary Care Provider: 08/26/18 18:52 Discharge Date: 08/27/18 - Discharge Diagnosis (1) Acute respiratory failure with hypoxia Is this a current diagnosis for this admission?: Yes Summary: Secondary to pneumonia (2) Pneumonia Is this a current diagnosis for this admission?: Yes Summary: Right lower lobe. Currently on antibiotic therapy. (3) Hypotension Is this a current diagnosis for this admission?: Yes Summary: Due to sepsis. Aggressive fluid resuscitation with improvement (4) Sepsis Is this a current diagnosis for this admission?: Yes Summary: Due to pneumonia. Aggressive fluid hydration and antibiotic therapy. (5) Nicotine dependence Is this a current diagnosis for this admission?: Yes Summary: Transdermal nicotine (6) Bipolar 1 disorder Is this a current diagnosis for this admission?: Yes Summary: Continue medications once identified from the pharmacy at [facility] - Additional Information Resuscitation Status: Full Code Discharge Diet: As Tolerated Discharge Activity: Balance Activity w/Rest, Energy Conservation Prescriptions: Azithromycin [Zithromax] 250 mg PO DAILY 7 Days #7 tablet Cefuroxime Axetil [Ceftin 500 mg Tablet] 500 mg PO BID 7 Days #14 tablet Guaifenesin [Mucinex Sr 600 mg Tablet.sa] 600 mg PO Q12 7 Days #14 tablet.sa Ipratropium/Albuterol Sulfate [Duoneb 3 ml Ampul] 3 ml NEB RTQ6HP PRN 10 Days #40 vial.neb PRN Reason: Prednisone [Deltasone 10 mg Tablet] 10 mg PO ASDIR PRN #21 tablet PRN Reason: Home Medications: Albuterol Sulfate [Proair HFA Inhalation Aerosol 8.5 gm MDI] 2 puff IH Q4HP PRN 08/26/18 Clozapine [Clozaril 100 mg Tablet] 300 mg PO QHS 08/26/18 Fluticasone/Salmeterol [Advair 250-50 Diskus 14 Dose/Diskus] 1 puff IH Q12 08/26/18 Gemfibrozil [Lopid 600 mg Tablet] 600 mg PO BIDBS 08/26/18 Glimepiride [Amaryl 1 mg Tablet] 1 mg PO DAILY 08/26/18 Lamotrigine [Lamictal 100 mg Tablet] 100 mg PO Q12 08/26/18 Latanoprost/Pf [Latanoprost 0.005% Eye Drop] 1 drop OU QPM 08/26/18 Lorazepam [Ativan 1 mg Tablet] 1 mg PO Q12 08/26/18 Losartan Potassium [Cozaar 25 mg Tablet] 25 mg PO DAILY 08/26/18 Lubiprostone [Amitiza 24 Mcg Capsule] 24 mcg PO BID 08/26/18 Mirabegron [Myrbetriq] 50 mg PO DAILY 08/26/18 Montelukast Sodium [Singulair 10 mg Tablet] 10 mg PO DAILY 08/26/18 Nicotine [Nicoderm 21 mg/24 Hr Transderm Patch] 1 patch TOP DAILY 08/26/18 Omeprazole 20 mg PO BID 08/26/18 Pregabalin [Lyrica 50 mg Capsule] 50 mg PO Q12 08/26/18 Quetiapine Fumarate [Seroquel Xr] 600 mg PO QHS 08/26/18 Rivaroxaban [Xarelto] 20 mg PO DAILY 08/26/18 Acetaminophen [Tylenol 325 mg Tablet] 650 mg PO Q4HP PRN tablet 08/27/18 Azithromycin [Zithromax] 250 mg PO DAILY 7 Days #7 tablet 08/27/18 Cefuroxime Axetil [Ceftin 500 mg Tablet] 500 mg PO BID 7 Days #14 tablet 08/27/18 Guaifenesin [Mucinex Sr 600 mg Tablet.sa] 600 mg PO Q12 7 Days #14 tablet.sa 08/27/18 Ipratropium/Albuterol Sulfate [Duoneb 3 ml Ampul] 3 ml NEB RTQ6HP PRN 10 Days #40 vial.neb 08/27/18 Nicotine [Nicoderm 21 mg/24 Hr Transderm Patch] 1 each TD DAILY patch.td24 08/27/18 Prednisone [Deltasone 10 mg Tablet] 10 mg PO ASDIR PRN #21 tablet 08/27/18 History of Present Illness History of Present Illness: THOR VANEGAS is a 57 year old female with a positive smoking history. She smokes approximately 1-1-1/2 packs daily. The patient is somewhat sleepy at the time of this encounter so much of the history is gleaned from discussion with and review of notes from the emergency department physician. Patient reports that over the last week she has been having significantly increased shortness of breath. She does not report a productive cough. EMS was called and she initially required 4 L of nasal cannula with multiple nebulizer treatments. Review of the home setting reveals no oxygen and no inhaler medications noted. Unfortunately patient cannot recall her medications. She states that there was a list on the table but we cannot locate the list at this time. The patient did arrive in the emergency department in moderate respiratory distress. She was also hypotensive. She was, however, afebrile. After several liters of IV fluid and improvement in her respiratory status she was referred to the hospitalist for admission. Hospital Course Hospital Course: The patient did show improvement with antibiotics and aggressive fluid resuscitation. This morning she was feeling better. The patient explained that she has a service dog that she put in a create prior to presenting to the hospital. There was no one who would be able to take care of the service animal. Initially she asked if she could leave and return to the hospital. I told her this would be against policy. She was awake and alert this morning. She was significantly improved. She did want to leave and go home. Her blood pressure was still systolic 88-89. She told me that her blood pressure always runs low and is in the 90-95 range. Considering the circumstances with her service dog, and the fact that she was noticeably improved, I discussed the possibility of discharging her so that I could provide antibiotic therapy. An appointment was scheduled with a primary care provider (she does not have one locally). I explained that if she would allow me to give her an additional bolus of saline and provide her with today's antibiotics prior to departure that I would discharge her so that she would have appropriate prescription medications. This was pending pulse ox evaluation on room air. The pulse ox at rest was 88-90%. However with minimal exertion her pulse oximetry dropped below 80%. With this new information I explained that I would not be able to discharge her at this time due to the new results. She does not have oxygen at home. She does have an inhaler (possible history of COPD) but her exertional hypoxia was just too low for a safe discharge. At that time, she unfortunately decided to sign out AGAINST MEDICAL ADVICE. Hopefully she will keep the appointment that was scheduled with a local primary care provider. Unfortunately there was no unable to care for the service dog who was currently created. This was an unfortunate turn of events. Physical Exam Vital Signs: Temp Pulse Resp BP Pulse Ox 97.9 F 22 H 118/78 80 L 08/27/18 10:22 08/27/18 10:22 08/27/18 10:03 08/27/18 10:22 Intake & Output 08/26/18 08/27/18 08/28/18 06:59 06:59 06:59 Intake Total 1067 1400 Balance 1067 1400 Weight 64.6 kg General appearance: PRESENT: mild distress Respiratory exam: PRESENT: rhonchi - Right base., symmetrical, unlabored. ABSENT: rales Cardiovascular exam: PRESENT: RRR, +S1, +S2 GI/Abdominal exam: PRESENT: normal bowel sounds, soft. ABSENT: tenderness Neurological exam: PRESENT: alert, awake, oriented to person, oriented to place, oriented to time, oriented to situation Psychiatric exam: PRESENT: anxious, appropriate affect Focused psych exam: ABSENT: delusional, restlessness Results Laboratory Results: 08/27/18 06:15 08/27/18 06:15 08/27/18 08/27/18 06:15 06:15 WBC 11.1 H RBC 4.45 Hgb 13.5 Hct 41.2 MCV 93 MCH 30.3 MCHC 32.7 RDW 20.2 H Plt Count 134 L Seg Neutrophils % Not Reportable Lymphocytes % Not Reportable Monocytes % Not Reportable Eosinophils % Not Reportable Basophils % Not Reportable Absolute Neutrophils Not Reportable Absolute Lymphocytes Not Reportable Absolute Monocytes Not Reportable Absolute Eosinophils Not Reportable Absolute Basophils Not Reportable Sodium 142.0 Potassium 4.1 Chloride 109 H Carbon Dioxide 27 Anion Gap 6 BUN 13 Creatinine 0.80 Est GFR ( Amer) > 60 Est GFR (Non-Af Amer) > 60 Glucose 94 Calcium 8.5 08/26/18 16:10 Troponin I < 0.012 Impressions: Chest X-Ray 08/27/18 06:00 IMPRESSION: Right basilar airspace disease atelectasis versus pneumonia Qualifiers - * PATIENT BEING DISCHARGED WITH ANY OF THE FOLLOWING DIAGNOSIS: No Plan Discharge Plan: As noted above, due to the low pulse oximetry finding with minimal exertion, I rescinded the discharge that was previously planned. Unfortunately the patient decided to leave AGAINST MEDICAL ADVICE citing the need to care for her service animal. She certainly understands that this is not a good decision. She certainly was aware that she would need to return to the emergency department if her condition declined.
== END 2018-08-27 10:38 | disposition left against medical advice (07) | DRG 871 ==
LOC: ER 15:49 → EH 18:52
PROVIDERS: ADMIT Internal Medicine; ATTEND Internal Medicine
DX: A41.9 Sepsis, unspecified organism (principal); J96.01 Acute respiratory failure with hypoxia; J18.9 Pneumonia, unspecified organism; F17.210 Nicotine dependence, cigarettes, uncomplicated; J44.9 Chronic obstructive pulmonary disease, unspecified; F31.9 Bipolar disorder, unspecified; F17.200 Nicotine dependence, unspecified, uncomplicated; I95.89 Other hypotension; E86.1 Hypovolemia; Z79.899 Other long term (current) drug therapy
CPT/HCPCS: 36415; 71045; 80048; 80053; 81001; 82803; 83605; 83735; 84484; 85025; 85610; 87040; 87086; 93005; 93010; J0456; J0696; J2920; J2930; J3475; J3490; J7030; J7060; J7620

== ENCOUNTER → 2018-09-12 | Outpatient (CLI) | payer MEDICAID ==
--- NOTE | 2018-09-12 13:46 | RADIOLOGY REPORT (SQ) ---
EXAM DESCRIPTION: CHEST 2 VIEWS COMPLETED DATE/TIME: 09/12/2018 1:36 pm REASON FOR STUDY: PNEUMONIA (J18.9) COMPARISON: Chest films 08/27/2018, 08/26/2018 EXAM PARAMETERS: NUMBER OF VIEWS: two views TECHNIQUE: Digital Frontal and Lateral radiographic views of the chest acquired. RADIATION DOSE: NA LIMITATIONS: none FINDINGS: LUNGS AND PLEURA: Patchy airspace disease is present in the left upper lobe worrisome for pneumonia. No pleural effusion. No pneumothorax. Remainder of the lungs are grossly clear. MEDIASTINUM AND HILAR STRUCTURES: No masses or contour abnormalities. HEART AND VASCULAR STRUCTURES: Heart normal size. No evidence for failure. BONES: No acute findings. HARDWARE: None in the chest. OTHER: No other significant finding. IMPRESSION: New left lower lobe airspace disease worrisome for pneumonia TECHNICAL DOCUMENTATION: JOB ID: [id number] [employer]- All Rights Reserved Reading location - IP/workstation name: [email or web address]
== END ==
LOC: RAD 12:32
PROVIDERS: ATTEND Family Medicine
DX: J44.1 Chronic obstructive pulmonary disease with (acute) exacerbation (principal); J18.9 Pneumonia, unspecified organism
CPT/HCPCS: 71046

== ENCOUNTER 2018-09-13 09:08 | Emergency (ER) | payer MEDICAID ==
[2018-09-13] MEDS ORDERED: CEFTRIAXONE INJ 1000 MG VIAL IV ONE (09:45)
[2018-09-13] MEDS ORDERED: AZITHROMYCIN INJ 500 MG VIAL IV ONE (09:47)
[2018-09-13] MEDS ORDERED: IPRATROPIUM/ALBUTEROL 0.5-2.5 MG/3 ML AMPUL NEB ONE (09:48)
--- NOTE | 2018-09-13 09:49 | ER Document Report ---
ED Medical Screen (RME) - General Chief Complaint: Breathing Difficulty Stated Complaint: TROUBLE BREATHING Time Seen by Provider: 09/13/18 09:40 Notes: Patient is a 57-year-old female with asthma that presents to the emergency department for chief complaint of cough and shortness of breath. Patient states she had an outpatient chest x-ray performed yesterday, and was called by her primary care and told that she had pneumonia and advised to come to the emergency department.. ROS: Other than noted above, the 12 point review of systems was reviewed with the patient and were negative, all pertinent findings are included in the HPI. PHYSICAL EXAMINATION: Vital signs reviewed. GENERAL: Patient is in no respiratory distress at this time, dry cough noted on exam HEAD: Atraumatic, normocephalic. EYES: Pupils equal round extraocular movements intact, conjunctiva are normal. ENT: Nares patent NECK: Normal range of motion CV: Heart regular rate and rhythm LUNGS: No respiratory distress, bilateral expiratory wheezing noted throughout all lung onofre Musculoskeletal: Normal range of motion NEUROLOGICAL: Normal speech PSYCH: Normal mood, normal affect. MDM: Patient seen and examined for rapid initial assessment. Vital signs reviewed. A comprehensive ED assessment and evaluation of the patient, analysis of test results and completion of the medical decision making process will be conducted by additional ED providers. *Note is created using voice recognition software and may contain spelling, syntax or grammatical errors. TRAVEL OUTSIDE OF THE [place] IN LAST 30 DAYS: No - Related Data Allergies/Adverse Reactions: clopidogrel [From Plavix] Allergy (Verified 09/13/18 09:41) haloperidol [From Haldol] Allergy (Verified 09/13/18 09:41) Penicillins Allergy (Verified 09/13/18 09:41) pork derived (porcine) Allergy (Verified 09/13/18 09:41) Past Medical History - Social History Chew tobacco use (# tins/day): No Frequency of alcohol use: None Drug Abuse: None Pulmonary Medical History: Reports: Hx COPD - Ongoing smoker. Chest x-ray does resemble the picture of copd Renal/ Medical History: Denies: Hx Peritoneal Dialysis Psychiatric Medical History: Reports: Hx Bipolar Disorder - Possible history of bipolar disorder Past Surgical History: Reports: Hx Abdominal Surgery - laproscopic Physical Exam - Vital signs Vitals: Temp Pulse Resp BP Pulse Ox 97.6 F 94 20 104/52 L 94 09/13/18 09:16 09/13/18 09:16 09/13/18 09:16 09/13/18 09:16 09/13/18 09:16 Course - Vital Signs Vital signs: Temp Pulse Resp BP Pulse Ox 97.6 F 94 20 104/52 L 94 09/13/18 09:16 09/13/18 09:16 09/13/18 09:16 09/13/18 09:16 09/13/18 09:16
[2018-09-13 10:42] LABS: ALANINE AMINOTRANSFERASE 27 U/L (9-52); ALBUMIN 4.1 g/dL (3.5-5.0); ALKALINE PHOSPHATASE 117 U/L (38-126); ANION GAP 11 (5-19); ASPARTATE AMINO TRANSFERASE 19 U/L (14-36); BILIRUBIN,DIRECT 0.3 mg/dL (0.0-0.4); BILIRUBIN,TOTAL 0.5 mg/dL (0.2-1.3); BLOOD UREA NITROGEN 20 mg/dL (7-20); CALCIUM 9.6 mg/dL (8.4-10.2); CARBON DIOXIDE 27 mmol/L (22-30); CHLORIDE 106 mmol/L (98-107); GLUCOSE 113 mg/dL (75-110); POTASSIUM 3.4 mmol/L (3.6-5.0); SODIUM 144.2 mmol/L (137-145); TOTAL PROTEIN 6.2 g/dL (6.3-8.2)
[2018-09-13 10:44] LABS: HEMATOCRIT 41.9 % (36.0-47.0); HEMOGLOBIN 13.7 g/dL (12.0-15.5); MEAN CORPUSCULAR HEMOGLOBIN 30.4 pg (27.0-33.4); MEAN CORPUSCULAR HGB CONC 32.6 g/dL (32.0-36.0); MEAN CORPUSCULAR VOLUME 93 fl (80-97); PLATELET COUNT 228 10^3/uL (150-450); RED CELL DISTRIBUTION WIDTH 20.5 % (11.5-14.0); WHITE BLOOD COUNT 14.4 10^3/uL (4.0-10.5)
--- NOTE | 2018-09-13 10:44 | RADIOLOGY REPORT (SQ) ---
EXAM DESCRIPTION: CHEST 2 VIEWS COMPLETED DATE/TIME: 09/13/2018 10:31 am REASON FOR STUDY: cough, shortness of breath COMPARISON: Previous day. EXAM PARAMETERS: NUMBER OF VIEWS: two views TECHNIQUE: Digital Frontal and Lateral radiographic views of the chest acquired. RADIATION DOSE: NA LIMITATIONS: none FINDINGS: LUNGS AND PLEURA: Left lower lobe space disease with slight improved aeration. There is a background of chronic interstitial changes. No effusions. MEDIASTINUM AND HILAR STRUCTURES: No masses or contour abnormalities. HEART AND VASCULAR STRUCTURES: Heart normal size. No evidence for failure. BONES: No acute findings. HARDWARE: None in the chest. OTHER: No other significant finding. IMPRESSION: Improving left lower lobe pneumonia. TECHNICAL DOCUMENTATION: JOB ID: [id number] [employer]- All Rights Reserved Reading location - IP/workstation name: [email or web address]
[2018-09-13 11:19] LABS: ABSOLUTE LYMPHOCYTES# (MANUAL) 3.7 10^3/uL (0.5-4.7); ABSOLUTE MONOCYTES # (MANUAL) 0.6 10^3/uL (0.1-1.4); ABSOLUTE NEUTROPHILS# (MANUAL) 9.9 10^3/uL (1.7-8.2); BAND NEUTROPHILS % (MANUAL) 5 % (3-5); BASOPHILS % (MANUAL) 1 % (0-2); EOSINOPHILS % (MANUAL) 0 % (0-6); LYMPHOCYTES % (MANUAL) 24 % (13-45); METAMYELOCYTES % (MANUAL) 2 % (0); MONOCYTES % (MANUAL) 4 % (3-13); SEGMENTED NEUTROPHILS % (MAN) 62 % (42-78); TOTAL CELLS COUNTED 100
[2018-09-13 11:21] LABS: ANISOCYTOSIS 3+; OVALOCYTES SLIGHT; PLATELET COMMENT ADEQUATE; POIKILOCYTOSIS SLIGHT; POLYCHROMASIA 1+; TEAR DROP CELLS SLIGHT
--- NOTE | 2018-09-13 11:21 | ER Document Report ---
ED General - General Chief Complaint: Breathing Difficulty Stated Complaint: TROUBLE BREATHING Time Seen by Provider: 09/13/18 09:40 Mode of Arrival: Ambulatory Information source: Patient Notes: Patient is a 57-year-old female who presents the emergency department chief complaint of shortness of breath and difficulty breathing. Patient reports that she was seen at her primary care providers office and had a chest x-ray done yesterday. She states they called her today and told her to come into the emergency department as she has a pneumonia. Patient reports she has been had ongoing pneumonia and bronchitis starting in May. Patient reports she has been on multiple different medications by mouth for the pneumonia. Does reports productive cough with yellow sputum. Patient denies any fever or chills. Reports history of hypertension. TRAVEL OUTSIDE OF THE [place] IN LAST 30 DAYS: No - Related Data Allergies/Adverse Reactions: clopidogrel [From Plavix] Allergy (Verified 09/13/18 09:41) haloperidol [From Haldol] Allergy (Verified 09/13/18 09:41) Penicillins Allergy (Verified 09/13/18 09:41) pork derived (porcine) Allergy (Verified 09/13/18 09:41) Past Medical History - General Information source: Patient - Social History Smoking Status: Current Every Day Smoker Chew tobacco use (# tins/day): No Frequency of alcohol use: None Drug Abuse: None Family History: Reviewed & Not Pertinent Patient has suicidal ideation: No Patient has homicidal ideation: No Pulmonary Medical History: Reports: Hx COPD - Ongoing smoker. Chest x-ray does resemble the picture of copd Renal/ Medical History: Denies: Hx Peritoneal Dialysis Psychiatric Medical History: Reports: Hx Bipolar Disorder - Possible history of bipolar disorder Past Surgical History: Reports: Hx Abdominal Surgery - laproscopic Review of Systems - Review of Systems Constitutional: No symptoms reported. denies: Chills, Fever EENT: No symptoms reported Cardiovascular: No symptoms reported Respiratory: Cough, Short of breath, Sputum, Wheezing Gastrointestinal: No symptoms reported Genitourinary: No symptoms reported Female Genitourinary: No symptoms reported Musculoskeletal: No symptoms reported Skin: No symptoms reported Hematologic/Lymphatic: No symptoms reported Neurological/Psychological: No symptoms reported Physical Exam - Vital signs Vitals: Temp Pulse Resp BP Pulse Ox 97.6 F 94 20 104/52 L 94 09/13/18 09:16 09/13/18 09:16 09/13/18 09:16 09/13/18 09:16 09/13/18 09:16 - Notes Notes: PHYSICAL EXAMINATION: GENERAL: Well-appearing, well-nourished and in no acute distress. HEAD: Atraumatic, normocephalic. EYES: Pupils equal round and reactive to light, extraocular movements intact, conjunctiva are normal. ENT: Nares patent, oropharynx clear without exudates. Moist mucous membranes. NECK: Normal range of motion, supple without lymphadenopathy LUNGS: Wheezes and rhonchi noted bilaterally. Mildly increased work of breathing. HEART: Regular rate and rhythm without murmurs ABDOMEN: Soft, nontender, nondistended abdomen. No guarding, no rebound. No masses appreciated. Female : No CVA tenderness. Musculoskeletal: Normal range of motion, no pitting or edema. No cyanosis. NEUROLOGICAL: Cranial nerves grossly intact. Normal speech, normal gait. Normal sensory, motor exams PSYCH: Normal mood, normal affect. SKIN: Warm, Dry, normal turgor, no rashes or lesions noted. Course - Re-evaluation Re-evalutation: CBC shows a leukocytosis of 14.4. CMP is unremarkable other than mild hypokalemia with a potassium of 3.4. Troponin is unremarkable. X-ray shows a left lower lobe pneumonia which the radiologist today states is resolving. Patient reports she has taken multiple oral antibiotics over the last 2 months without complete resolution of her pneumonia. 09/13/18 13:11 Consulted hospitalist, Dr. Garcia who agrees to come and evaluate the patient. 09/13/18 14:02 Hospitalist has evaluated the patient and we are all in agreement that patient can be discharged home. She will be instructed to follow-up with her PCP on Saturday. Patient was educated that it takes 4-6 weeks for pneumonia to completely resolve on chest x-ray. Strict ED return precautions were discussed with the patient. - Vital Signs Vital signs: Temp Pulse Resp BP Pulse Ox 97.6 F 94 19 117/55 L 96 09/13/18 09:16 09/13/18 09:16 09/13/18 13:01 09/13/18 13:00 09/13/18 13:01 - Laboratory Result Diagrams: 09/13/18 10:00 09/13/18 10:00 Laboratory results interpreted by me: 09/13/18 09/13/18 10:00 10:00 WBC 14.4 H RDW 20.5 H Metamyelocytes % 2 H Abs Neuts (Manual) 9.9 H Potassium 3.4 L Glucose 113 H Total Protein 6.2 L Discharge - Discharge Clinical Impression: Pneumonia Qualifiers: Pneumonia type: due to unspecified organism Laterality: left Lung location: lower lobe of lung Qualified Code(s): J18.1 - Lobar pneumonia, unspecified organism Condition: Stable Disposition: HOME, SELF-CARE Additional Instructions: PNEUMONIA: Your examination indicates that you have pneumonia. This is an infection of the lung tissue, usually caused by bacteria or a virus. Symptoms include cough, fever, shaking chills, chest pain, shortness of breath, and coughing up bloody sputum. Treatment for bacterial pneumonia includes rest, antibiotics for 10 to 14 days, increasing your clear liquid intake, a cool mist humidifier at your bedside, and fever medication. Often, a repeat chest X-ray is performed in a few weeks--even if you feel better--to ascertain whether the infection has completely resolved and no underlying lung problem is present. You should call the physician if you develop persistent vomiting, high fever that does not respond to fever medication, increasing shortness of breath, confusion, or lethargy. Also, failure to improve within two to three days is an indication for re-examination. ANTIBIOTIC INJECTION: You have been given an antibiotic injection. Sometimes the injection must be combined with antibiotic pills. For some infections, the shot provides all the antibiotic that's needed. Common side effects of antibiotics include nausea, intestinal cramping, or diarrhea. These are very unusual following a shot. Women may develop vaginal yeast infections, and babies can get yeast (thrush) in the mouth following the use of antibiotics. Contact your physician if you develop significant side effects from this medication. Allergy to this antibiotic can result in hives, wheezing, faintness, or itching. If symptoms of allergy occur, call the doctor at once. ROCEPHIN: You have been given an injection of an antibiotic called Rocephin (ceftriaxone). Sometimes the injection must be combined with antibiotic pills. For some infections, such as an uncomplicated ear infection, Rocephin provides all the antibiotic that's needed. The antibiotic will be in your body for about two days. For serious infections, we usually repeat doses of Rocephin daily. Side effects are very unusual following a shot. Women may develop vaginal yeast infections, and babies can get yeast (thrush) in the mouth following the use of antibiotics. Contact your physician if you have symptoms with this medication. Allergy to this antibiotic can result in hives, wheezing, faintness, or itching. If symptoms of allergy occur, call the doctor at once. FOLLOW-UP CARE: If you have been referred to a physician for follow-up care, call the physicians office for an appointment as you were instructed or within the next two days. If you experience worsening or a significant change in your symptoms, notify the physician immediately or return to the Emergency Department at any time for re-evaluation. Please call primary care provider on Saturday to schedule a follow-up appointment. The x-ray today shows that your pneumonia is resolving in comparison with yesterday's x-ray. You were evaluated by the hospitalist who agrees that it is safe for you to go home. Please return to the emergency department if you experience worsening of your shortness of breath, difficulty breathing or you develop high fevers.
--- NOTE | 2018-09-13 13:19 | EKG REPORT ---
SEVERITY:- DEFECTIVE ECG - NSR NONSPECIFIC LATERAL ST CHANGES : Confirmed by: Marito Puga MD 13-Sep-2018 13:19:17
[2018-09-13 14:21] VITALS: BP 117/67
--- NOTE | 2018-09-13 14:29 | PDOC CONSULTATION ---
Consultation Consult Date: 09/13/18 Attending physician:: ER Consult reason:: persistant PNA History of Present Illness Admission Date/PCP: 09/13/18 13:19 PATIENT was NOT admitted Patient complains of: persistant PNA History of Present Illness: THOR VANEGAS is a 57 year old female who has had 3-4 months of chronic PNA that has not improved. Patient was admitted on 08/26 for community acquired PNA and treated with antibiotics. Per chart review, patient left AMA due to concerns about her about service dog. It appears that patient has received multiple types of oral antibiotics however she is unclear what she has received. States that over the last 2 weeks, she has been taking antibiotics (type unknown). She feels well overall. Denies fevers, chills, CP, worsening SOB. She has chronic cough with occasional sputum production however is a known heavy smoker. She was seen by her PCP yesterday and had a CXR done. This AM, she received a call from her PCP who noted that she has a PNA and should come to the ER for evaluation. Patient had repeat CXR which showed improvement in left upper lobe opacity. Vital signs were stable and labs unremarkable except for WBC 14,000, which patient notes that she has been taking steroids over the last couple of days. NO other complaints. She was started on IV azithro and ceftrixaone. ER consulted hospitalist medicine to evaluate patient and determine if she needs to be admitted. Past Medical History Pulmonary Medical History: Reports: Chronic Obstructive Pulmonary Disease (COPD) - Ongoing smoker. Chest x-ray does resemble the picture of copd Psychiatric Medical History: Reports: Bipolar Disorder - Possible history of bipolar disorder Social History Information Source: Patient Smoking Status: Current Every Day Smoker Frequency of Alcohol Use: None - Unknown at this time Hx Recreational Drug Use: No - Unknown at this time Hx Prescription Drug Abuse: No - Unknown at this time Family History Family History: Reviewed & Not Pertinent Parental Family History Reviewed: No Children Family History Reviewed: NA Sibling(s) Family History Reviewed.: NA Medication/Allergy Allergies/Adverse Reactions: clopidogrel [From Plavix] Allergy (Verified 09/13/18 09:41) haloperidol [From Haldol] Allergy (Verified 09/13/18 09:41) Penicillins Allergy (Verified 09/13/18 09:41) pork derived (porcine) Allergy (Verified 09/13/18 09:41) Review of Systems All systems: reviewed and no additional remarkable complaints except as stated Physical Exam Vital Signs: Temp Pulse Resp BP Pulse Ox 97.6 F 94 19 117/55 L 96 09/13/18 09:16 09/13/18 09:16 09/13/18 13:01 09/13/18 13:00 09/13/18 13:01 Intake & Output 09/12/18 09/13/18 09/14/18 06:59 06:59 06:59 Weight 87 kg General appearance: PRESENT: no acute distress, cooperative, obese Head exam: PRESENT: atraumatic Eye exam: PRESENT: PERRLA. ABSENT: scleral icterus Mouth exam: PRESENT: dry mucosa Respiratory exam: PRESENT: rhonchi, unlabored, wheezes. ABSENT: tachypnea Cardiovascular exam: PRESENT: +S1, +S2. ABSENT: tachycardia GI/Abdominal exam: PRESENT: soft. ABSENT: tenderness Neurological exam: PRESENT: alert, awake, CN II-XII grossly intact Psychiatric exam: PRESENT: anxious, normal mood Skin exam: PRESENT: dry, intact Results Laboratory Results: 09/13/18 10:00 09/13/18 10:00 09/13/18 09/13/18 10:00 10:00 WBC 14.4 H RBC 4.50 Hgb 13.7 Hct 41.9 MCV 93 MCH 30.4 MCHC 32.6 RDW 20.5 H Plt Count 228 Seg Neutrophils % Not Reportable Lymphocytes % Not Reportable Monocytes % Not Reportable Eosinophils % Not Reportable Basophils % Not Reportable Absolute Neutrophils Not Reportable Absolute Lymphocytes Not Reportable Absolute Monocytes Not Reportable Absolute Eosinophils Not Reportable Absolute Basophils Not Reportable Sodium 144.2 Potassium 3.4 L Chloride 106 Carbon Dioxide 27 Anion Gap 11 BUN 20 Creatinine 0.81 Est GFR ( Amer) > 60 Est GFR (Non-Af Amer) > 60 Glucose 113 H Calcium 9.6 Total Bilirubin 0.5 AST 19 ALT 27 Alkaline Phosphatase 117 Total Protein 6.2 L Albumin 4.1 09/13/18 10:00 Troponin I < 0.012 Impressions: Chest X-Ray 09/13/18 09:45 IMPRESSION: Improving left lower lobe pneumonia. Assessment & Plan - Diagnosis (1) Pneumonia Qualifiers: Pneumonia type: due to unspecified organism Laterality: left Lung location: lower lobe of lung Qualified Code(s): J18.1 - Lobar pneumonia, unspecified organism Plan: Patient has questionable chronic PNA. She is noted to have new Left upper lobe opacity on CXR from 09/12. However is otherwise asympotmatic. She has been on multiple course of abx, most recently over the last 2 weeks per patient. Due to findings on CXR, patient was advised by her PCP to come to ED for further e valuation. On repeat CXR, she has improvement in SWETA opacity. Vital signs were stable and labs were unremarkable except for elevated WBC, which is likely from steroid use, which was prescribed by her PCP. Given that PNA can linger on CXR for weeks after initial diagnosis and lack of other symptoms, she does not have an obvious inpatient need. I discussed with patient that she should closely monitor she symptoms and vital signs while off antibiotics. IF she develops new symptoms such as fevers or SOB, she should call her PCP or return to the ED. She was agreeable with plan. Discussed recommendation with ED provider, who was agreeable to plan and will discharge patient from ED to home. (2) Nicotine dependence Qualifiers: Nicotine product type: cigarettes Substance use status: uncomplicated Qualified Code(s): F17.210 - Nicotine dependence, cigarettes, uncomplicated Is this a current diagnosis for this admission?: Yes Plan: Continue smoking. I discussed the importance of smoking cessation particularly in terms of preventing additional damage to her lungs and helping to overcome any illnesses. Smoking cessation aids available when/if patient is interested. - Time Time Spent: 30 to 50 Minutes Smoking Cessation Education: 3 to 10 minutes Medications reviewed and adjusted accordingly: No Anticipated discharge: Home - d/c to home from ER
--- NOTE | 2018-09-17 10:11 | EKG REPORT ---
SEVERITY:- OTHERWISE NORMAL ECG - SINUS RHYTHM BORDERLINE LEFT AXIS DEVIATION : Confirmed by: Elroy Rosas 17-Sep-2018 10:11:05
== END 2018-09-13 14:31 | disposition home or self-care (01) ==
LOC: ER 09:08 → EH 13:19 → UNDOADMIN 13:19 → ER 14:31
DX: J18.1 Lobar pneumonia, unspecified organism (principal); J44.0 Chronic obstructive pulmonary disease with (acute) lower respiratory infection; E87.6 Hypokalemia; R06.02 Shortness of breath; R05 Cough; F17.210 Nicotine dependence, cigarettes, uncomplicated; Z71.6 Tobacco abuse counseling; Z88.8 Allergy status to other drugs, medicaments and biological substances; Z88.0 Allergy status to penicillin; Z91.018 Allergy to other foods
CPT/HCPCS: 93005; 94640; 99285; 96365; 96367; 36415; 85025; 80053; 84484; 71046; 93010; J0696; J0456; J7620

== ENCOUNTER → 2018-09-24 | Outpatient (CLI) | payer MEDICAID ==
[2018-09-24 13:44] LABS: HEMOGLOBIN 14.1 g/dL (12.0-15.5); MEAN CORPUSCULAR HEMOGLOBIN 31.1 pg (27.0-33.4); MEAN CORPUSCULAR HGB CONC 33.7 g/dL (32.0-36.0); MEAN CORPUSCULAR VOLUME 92 fl (80-97); PLATELET COUNT 193 10^3/uL (150-450); RED BLOOD COUNT 4.55 10^6/uL (3.72-5.28); RED CELL DISTRIBUTION WIDTH 20.3 % (11.5-14.0); WHITE BLOOD COUNT 20.3 10^3/uL (4.0-10.5)
[2018-09-24 14:14] LABS: ABSOLUTE LYMPHOCYTES# (MANUAL) 4.3 10^3/uL (0.5-4.7); ABSOLUTE MONOCYTES # (MANUAL) 0.4 10^3/uL (0.1-1.4); ABSOLUTE NEUTROPHILS# (MANUAL) 15.6 10^3/uL (1.7-8.2); BAND NEUTROPHILS % (MANUAL) 3 % (3-5); BASOPHILS % (MANUAL) 0 % (0-2); EOSINOPHILS % (MANUAL) 0 % (0-6); LYMPHOCYTES % (MANUAL) 17 % (13-45); METAMYELOCYTES % (MANUAL) 2 % (0); MONOCYTES % (MANUAL) 2 % (3-13); MYELOCYTES % (MANUAL) 1 % (0); NUCLEATED RED BLOOD CELLS 2 /100 WBC (0); SEGMENTED NEUTROPHILS % (MAN) 71 % (42-78); TOTAL CELLS COUNTED 100
[2018-09-24 14:19] LABS: ANISOCYTOSIS 2+; OVALOCYTES SLIGHT; POLYCHROMASIA SLIGHT; TOXIC GRANULATION 1+; TOXIC VACUOLATION PRESENT
[2018-09-24 14:20] LABS: TEAR DROP CELLS 1+
[2018-09-24 14:28] LABS: PLATELET COMMENT ADEQUATE
== END ==
LOC: OD 12:18
PROVIDERS: ATTEND Nurse Practitioner
DX: F31.32 Bipolar disorder, current episode depressed, moderate (principal)
CPT/HCPCS: 36415; 85025

== ENCOUNTER → 2018-09-30 | Outpatient (CLI) | payer MEDICAID ==
--- NOTE | 2018-09-30 13:13 | RADIOLOGY REPORT (SQ) ---
EXAM DESCRIPTION: CHEST PA/LATERAL COMPLETED DATE/TIME: 09/30/2018 12:56 pm REASON FOR STUDY: CHRONIC OBSTRUCTIVE PULMONARY DISEASE W (ACUTE) EXACERBATION COMPARISON: Chest films 09/12/2018, 08/27/2018, 08/26/2018 chest films 08/26/2018, 08/27/2018, 09/12/2018, 08/23 EXAM PARAMETERS: NUMBER OF VIEWS: two views TECHNIQUE: Digital Frontal and Lateral radiographic views of the chest acquired. RADIATION DOSE: NA LIMITATIONS: none FINDINGS: LUNGS AND PLEURA: Persistent mild left lateral chest pleural thickening and adjacent paren chymal bandlike scarring or atelectasis. No acute infiltrates. No pleural effusion. No pneumothorax. MEDIASTINUM AND HILAR STRUCTURES: No masses or contour abnormalities. HEART AND VASCULAR STRUCTURES: No cardiomegaly. Faintly radiopaque ASD closure device is seen on the lateral view BONES: No acute findings. HARDWARE: None in the chest. OTHER: No other significant finding. IMPRESSION: No acute changes TECHNICAL DOCUMENTATION: JOB ID: [id number] [employer]- All Rights Reserved Reading location - IP/workstation name: [email or web address]
== END ==
LOC: OD 12:34
PROVIDERS: ATTEND Family Medicine
DX: J44.1 Chronic obstructive pulmonary disease with (acute) exacerbation (principal)
CPT/HCPCS: 71046

== ENCOUNTER → 2018-10-20 | Outpatient (CLI) | payer MEDICAID ==
[2018-10-20 13:09] LABS: HEMATOCRIT 43.9 % (36.0-47.0); HEMOGLOBIN 14.4 g/dL (12.0-15.5); MEAN CORPUSCULAR HEMOGLOBIN 30.2 pg (27.0-33.4); MEAN CORPUSCULAR HGB CONC 32.7 g/dL (32.0-36.0); MEAN CORPUSCULAR VOLUME 92 fl (80-97); RED BLOOD COUNT 4.76 10^6/uL (3.72-5.28); RED CELL DISTRIBUTION WIDTH 19.8 % (11.5-14.0); WHITE BLOOD COUNT 21.4 10^3/uL (4.0-10.5)
[2018-10-20 13:30] LABS: ABSOLUTE LYMPHOCYTES# (MANUAL) 3.4 10^3/uL (0.5-4.7); ABSOLUTE MONOCYTES # (MANUAL) 0.6 10^3/uL (0.1-1.4); ABSOLUTE NEUTROPHILS# (MANUAL) 16.9 10^3/uL (1.7-8.2); BAND NEUTROPHILS % (MANUAL) 5 % (3-5); BASOPHILS % (MANUAL) 1 % (0-2); EOSINOPHILS % (MANUAL) 0 % (0-6); LYMPHOCYTES % (MANUAL) 14 % (13-45); MONOCYTES % (MANUAL) 3 % (3-13); NUCLEATED RED BLOOD CELLS 1 /100 WBC (0); SEGMENTED NEUTROPHILS % (MAN) 68 % (42-78); TOTAL CELLS COUNTED 100
[2018-10-20 13:33] LABS: ANISOCYTOSIS 2+; OVALOCYTES SLIGHT; PLATELET CLUMPS PRESENT; POIKILOCYTOSIS SLIGHT; POLYCHROMASIA 1+; TEAR DROP CELLS SLIGHT
[2018-10-20 13:35] LABS: IMMATURE MONONUCLEAR% (MANUAL) 1 % (0); METAMYELOCYTES % (MANUAL) 4 % (0); MYELOCYTES % (MANUAL) 1 % (0); PLATELET COMMENT ADEQUATE; PROMYELOCYTES % (MANUAL) 1 % (0)
[2018-10-20 13:43] LABS: PLATELET COUNT 200 10^3/uL (150-450)
== END ==
LOC: OD 12:30
PROVIDERS: ATTEND Nurse Practitioner
DX: F31.32 Bipolar disorder, current episode depressed, moderate (principal)
CPT/HCPCS: 36415; 85025